=== PATIENT | female | born 1980 | race Caucasian/White ===

== ENCOUNTER 2018-02-22 07:42 | Day surgery (SDC) | payer OTHER ==
[~2018-02-22 07:42] MED LIST: ESCI10 PO; IBUP800 PO; Prinivil10 MG PO
== END 2018-02-22 22:44 | disposition home or self-care (01) ==
LOC: MOI US 07:42
DX: D36.9 Benign neoplasm, unspecified site (principal)
CPT/HCPCS: 19285; 77065

== ENCOUNTER 2018-02-27 07:44 | Day surgery (SDC) | payer OTHER ==
[~2018-02-27] VITALS: Ht 167.6 cm; Wt 86.7 kg
--- NOTE | 2018-02-27 09:17 | NUR ---
02/27/18 0917 Isaac Perkins TRANSDERMAL PATCH PLACED BEHIND LEFT EAR PER MD ORDER
--- NOTE | 2018-02-27 10:41 | NUR ---
02/27/18 1041 Zelda Guillory PT INTO PACU, TRANSFERED TO [facility] R/T PT EMPTYING BLADDER ON BED IN OR. ORAL AIRWAY REMOVED AT 1031, CURRENTLY ON ROOM AIR. VSS. ENCOURAGING PT TO TAKE DEEP BREATHES. PT SLEEPY BUT NODDING APPROPRIATELY AT QUESTIONS.
== END 2018-02-27 11:32 | disposition home or self-care (01) ==
LOC: ORSCSDS 07:44
PROVIDERS: Surgery
PROC: 0HBT0ZX Excision of Right Breast, Open Approach, Diagnostic (ICD-10-PCS; principal; 2018-02-27 09:00)
DX: D24.1 Benign neoplasm of right breast (principal); I10 Essential (primary) hypertension; E03.9 Hypothyroidism, unspecified; Z79.899 Other long term (current) drug therapy
CPT/HCPCS: 76098; 88307; J0690; J7120